=== PATIENT | female | born 1990 | race Caucasian/White ===

== ENCOUNTER 2021-12-12 07:14 | Inpatient (IN) | payer OTHER ==
[2021-12-12] VITALS (26 sets, daily range): BP systolic 99–134; BP diastolic 55–559; PULSE 55–101; TEMP 97.7–98.2
[~2021-12-12] VITALS: Ht 172.7 cm; Wt 88.6 kg
--- NOTE | 2021-12-12 07:30 | NUR ---
0715- Pt arrives on unit via wheelchair with complaints of UCs. 0721- Pt into bed, very uncomfortable with UCs. EFM and TOCO on and tracing. VSS. Assessment completed. Pt states UCs started at approx 0400, became much more regular and intense around 0600. Denies VB or LOF. +FM per Pt.
[2021-12-12] MEDS ORDERED: PRENATAL TABLET PO (07:33)
[2021-12-12] MEDS ORDERED: LEVOXYL0.1 MG PO (07:33)
[2021-12-12 07:58] LABS: BASO # 0.1 K/mm3 (0.0-0.2); BASO % 0.5 % (0.0-2.0); EOS # 0.2 K/mm3 (0.0-0.7); EOS % 1.7 % (0.0-4.0); GRAN # 7.9 K/mm3 (1.4-6.5); GRAN % 64.6 % (42.2-75.2); HEMOGLOBIN 12.4 g/dl (12.5-16.0); LYMPH # 3.3 K/mm3 (1.2-3.4); LYMPH % 26.6 % (20.0-51.0); MEAN CELL VOLUME 88 fl (80.0-100.0); MEAN CORPUSCULAR HEMOGLOBIN 31 pg (27-31); MEAN CORPUSCULAR HGB CONC 35 g/dl (33.0-37.0); MEAN PLATELET VOLUME 10.6 fl (7.4-10.4); MONO # 0.7 K/mm3 (0.1-0.6); MONO % 5.9 % (1.7-9.3); PLATELET COUNT 197 K/mm3 (130-400); RED BLOOD COUNT 4.03 M/mm3 (4.10-5.30)
[2021-12-12 08:00] LABS: HEMATOCRIT 35.4 % (37.0-47.0)
--- NOTE | 2021-12-12 08:30 | NUR ---
0806- Pt up to void. 0815- ANTONELLA Butler at bedside. Pt sitting on side of bed for epidural placement. O2 sat monitor on and tracing maternal HR 08- Test dose, see anesthesia record. 08- O2 sat monitor off. Pt assisted to Semi-fowlers with WL. 0824- Dr Gorman at bedside for introduction. Will return after Pt is comfortable with epidural.
--- NOTE | 2021-12-12 09:30 | NUR ---
0920- Dr Gorman at bedside, SVE /-1, AROM, meconium fluid noted. Pt assited to RL, FHR and TOCO adjusted, FHR noted to be 115bpm. 0928- Dr Gorman at bedside, SVE by this RN, 8cm. Pt assited to LL with RL on stirrup. FHR noted to raise to baseline over next 2mins.
--- NOTE | 2021-12-12 10:15 | NUR ---
1007- Dr Gorman and this RN at bedside. SVE by 9cm, states baby is in OP position. Assisted Pt into knee-chest position.
--- NOTE | 2021-12-12 10:45 | NUR ---
1032- Pt assisted out of LONNIE and into semi-fowlers. Straight cath by this RN without difficulty, 500mls noted. SVE by this RN 9-/0. Pt repositioned to RL with LLS. FHR deceleration noted down to 90's. 1039- FHR noted to be 140-120's for approx 1 min. before deceling again down to 60 bpm. 1041- Dr Gorman at bedside. Pt repsoitioned to LL. O2 sat monitor on and tracing maternal HR. FHR noted to be in the 90's. 1044- SVE by Dr Gorman, emcouages Pt to push, calls cervix complete. Pt begins pushing with UCs. Tino, nursery RN and Luke, [employer] called to bedside. 1047- Vacuum applied by , pulls x3 with pushes, pop-off noted with 3rd push. Pt continues pushing with UCs, Dr Gorman remains at bedside.
--- NOTE | 2021-12-12 11:00 | NUR ---
FHR tracing intermittenlty due to pushing and position. Recurrent FHR late decelerations noted down to the 90's after pushing. Dr Gorman remains at bedside monitoring strip.
--- NOTE | 2021-12-12 11:30 | NUR ---
1126- Vacuum on, pressure released between contractions. 1128- Pop-off noted, Vacuum was not replaced. Pt continues pushing with UCs. MD remains at bedside monitoring strip.
--- NOTE | 2021-12-12 11:37 | NUR ---
1137- of viable female infant, spontaneous crying noted. immediately to mother's abd, tended to by nursery RN. Cord clamped and cut. Cord segment clamped and gases obtained by this RN. Cord blood obtained. 1139- Spontaneous delivery of placenta. Pitocin started at 333ml/hr. Fundus firm per MD. Perineal repair completed. Pericare, icepack to perineum. Pt assisted to semi-fowlers. skin-2-skin. MD requests placenta to pathology.
--- NOTE | 2021-12-12 14:10 | NUR ---
1410- Pt ambulates to bathroom independenely with RN standby assist. Voids without difficulty. Pericare performed and explained. Clean gown on. Pt ambulates to PP room with standby assist. Oriented to room. Call light within reach.
[2021-12-13 01:35] VITALS: BP 117/71; PULSE 60; TEMP 98
[2021-12-13 07:25] VITALS: BP 115/72; PULSE 58; TEMP 97.7
[2021-12-13] MEDS ORDERED: MOTRIN 800800 MG/TAB PO (08:41)
--- NOTE | 2021-12-13 09:04 | NUR ---
Initial visit; Parents thanked [employer] for offering Congratulations and God's blessings for the of their daughter. [employer] thanked family for choosing [facility].
[2021-12-13 12:00] VITALS: BP 109/71; PULSE 56; TEMP 97.9
--- NOTE | 2021-12-13 13:35 | NUR ---
KARLOS PATINO WALKED PT AND BABY OUT AT THIS TIME.
== END 2021-12-13 13:35 | disposition home or self-care (01) | DRG 807 ==
LOC: LDRO 07:14 → LDR 07:15 → LDRO 07:16 → OB 07:41 → LDR 07:41 → OB 14:20
PROVIDERS: Obstetrics & Gynecology; ADMIT Obstetrics & Gynecology
PROC: 10D07Z6 Extraction of Products of Conception, Vacuum, Via Natural or Artificial Opening (ICD-10-PCS; principal; 2021-12-12)
PROC: 0KQM0ZZ Repair Perineum Muscle, Open Approach (ICD-10-PCS; 2021-12-12)
PROC: 10907ZC Drainage of Amniotic Fluid, Therapeutic from Products of Conception, Via Natural or Artificial Opening (ICD-10-PCS; 2021-12-12)
DX: O99.284 Endocrine, nutritional and metabolic diseases complicating childbirth (principal); Z37.0 Single live birth; E03.9 Hypothyroidism, unspecified; O77.0 Labor and delivery complicated by meconium in amniotic fluid; O76 Abnormality in fetal heart rate and rhythm complicating labor and delivery; O64.0XX0 Obstructed labor due to incomplete rotation of fetal head, not applicable or unspecified; O70.1 Second degree perineal laceration during delivery; Z3A.38 38 weeks gestation of pregnancy
CPT/HCPCS: J2590; J7120